=== PATIENT | female | born 1985 | race Caucasian/White ===

== ENCOUNTER 2019-05-26 02:28 | Inpatient (IN) ==
[2019-05-26] MEDS ORDERED: LORazepam 1 MG/2 ML VIAL IV STA (02:33)
[2019-05-26] MEDS ORDERED: SODIUM CHLORIDE 0.9% 1000ML 1,000 ML IV ONE (02:33)
[2019-05-26 02:51] LABS: Basophils # (auto) 0.01 K/uL (0-0.2); Basophils % (auto) 0.1 %; Eosinophils % (auto) 2.9 %; Hematocrit (blood only) 40.3 % (37-47); Hemoglobin 13.9 g/dL (12.0-16.0); Immature Granulocytes # (auto) 0.01 K/uL (0.00-0.02); Immature Granulocytes % (auto) 0.1 %; Lymphocytes # (auto) 1.59 K/uL (1.2-3.4); Lymphocytes % (auto) 22.7 %; Mean Corpuscular Hgb Conc 34.5 g/dL (32-36); Mean Corpuscular Volume 88.4 fL (80-100); Monocytes # (auto) 0.26 K/uL (0.11-0.59); Monocytes % (auto) 3.7 %; Neutrophils # (auto) 4.92 K/uL (1.4-6.5); Neutrophils % (auto) 70.5 %; Platelet Count 193 K/uL (130-400); RDW Coefficient of Variation 12.6 % (11.5-14.5); RDW Standard Deviation 40.1 fL (36.4-46.3); Red Blood Count 4.56 M/uL (4.2-5.4); White Blood Count 6.99 K/uL (4.8-10.8)
[2019-05-26 03:03] LABS: Appearance Urine Clear (Clear); Bacteria Urine Automated Negative (Negative); Bilirubin Urine Negative (Negative); Blood Urine 2+ (Negative); Color Urine Yellow; Glucose Urine UA Negative (Negative); Ketones Urine Trace (Negative); Leukocyte Esterase Urine Negative (Negative); Nitrite Urine Negative (Negative); Protein Urine 1+ (Negative); RBC Urine Automated 0-4 /hpf (0-4); Specific Gravity Urine 1.025 (1.000-1.030); Urobilinogen Urine Negative (Negative)
[2019-05-26 03:20] LABS: Alanine Aminotransferase 25 U/L (12-78); Albumin Level 3.9 gm/dl (3.4-5.0); BUN Creatinine Ratio 14.8 (10-20); Blood Urea Nitrogen 16 mg/dl (7-18); Calcium 8.7 mg/dl (8.5-10.1); Carbon Dioxide 25 mmol/L (21-32); Chloride 105 mmol/L (98-107); Creatinine Clr Calc Pharmacy 74.2 ml/min; Est GFR (African American) 79.7; Est GFR (Non-African American) 68.8; Glucose 120 mg/dl (70-99)
[2019-05-26 03:21] LABS: Amphetamines+Metham, Urine Neg (Neg); Barbiturates, Urine Neg (Neg); Benzodiazepine, Urine Neg (Neg); Cocaine, Urine Neg (Neg); MDMA (Ecstacy), Urine Neg (Neg); Methadone, Urine Neg (Neg); Opiate, Urine Neg (Neg); Phencyclidine, Urine Neg (Neg)
[2019-05-26 03:21] LABS: Alkaline Phosphatase 56 U/L (45-117); Bilirubin,Total 0.3 mg/dl (0.2-1); Total Protein 7.8 gm/dl (6.4-8.2); Troponin I < 0.015 ng/ml (0-0.045)
[2019-05-26 03:38] LABS: Aspartate Aminotransferase 22 U/L (15-37); Magnesium 2.4 mg/dl (1.8-2.4)
[2019-05-26 03:39] LABS: Potassium 3.4 mmol/L (3.5-5.1); Sodium 140 mmol/L (136-145)
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
--- NOTE | 2019-05-26 05:26 | History & Physical Report ---
Date of Service May 26, 2019 Assessment & Plan (1) Seizure disorder: Patient with longstanding history of seizures. She has been on multiple AEDs to include Phenobarbital, Keppra, Trileptal, Dilantin, Lamictal. Right temporal lobectomy in 2000 with posterior revision in 2012. She had a VNS for 6 months in with subsequent removal and replacement. Patient was following with Neurology in [place] but is presenlty living in the [facility] and does not have a Neurologist. She has been trying to decrease her medications, specifically Keppra secondary to depression and mood. Mother denies use of recreational drugs aside from medical marijuana. -Patient given Keppra x 1gm in ER -Continue Vimpat 200mg po BID -Continue Carbamazepine 200mg po BID -Continue Clobazam 20mg po qHS -Neurology consult - appreciate assistance with this case -Case management assistance to establish care with PCP and Neuro - appreciate assistance -Seizure precautions -Will hold of on EEG and additional imaging for now Present on Admission?: Yes (2) Altered mental status: Patient post-ictal. Presently resting comfortably, arousable and following some commands. -As above Present on Admission?: Yes (3) Dehydration: NSS at 125mL/hr with KCL 20mEq Encourage PO intake when mental status improves F/E/N - IVF as above, K repletion as above, check PO4 x 1, NPO for now, advance diet as tolerated as mental status improves Ppx - low risk for DVT, aspiration precautions Code - Full Dispo - admit to PCU History of Present Illness Chief Complaint: seizure Primary Care Provider: NO PCP Jennie Arambula is a 33yo C female with history of seizure disorder/epilepsy since age 9 presenting today after witnessed seizure x 2 at home. History obtained from patient's mother at bedside as patient is post-ictal. She states that this evening she found patient seizing in the living room. She reports tonic-clonic activity, muscle stiffness, head and eyes jerking to one side. States seizure lasted approximately 1 minute. After the seizure patient was walking around the house, not responding and acting confused and became combative. EMS was called - patient had a second seizure and again became combative. Patient was given Ativan 2mg IV and Ketamine 3mg/kg in the field. Mother reports that patient has never had a seizure this severe before. She states that the seizure lasted longer than prior seizures and she was more confused afterwards. Patient was previously living in [place], [place] with her father. She was following with [facility] there (mother is unsure of physician's name). She has since moved in with her mother and has been staying on the couch until she gets an apartment. Her mother states she has had seizures since age 9. She has been on multiple AEDs in the past. She had a vagus nerve stimulator in place which was subsequently removed and placed again. She is presently on Tegretal, Vimpat and Keppra. She has been self-weaning her medications over the past few months. She specifically wishes to discontinue the Keppra as it makes her depressed and angry. Her mother reports she has weaned herself down to 500mg of Keppra daily. ER Course: Keppra x 1gm, Ativan x 1 mg, NSS Allergies Allergy/AdvReac Type Severity Reaction Status Date / Time Aminoglycosides Allergy Mild Unresponsiv Verified 05/26/19 03:31 e aspirin Allergy Mild Unknown Verified 05/26/19 03:31 bacitracin Allergy Mild Unknown Verified 05/26/19 03:31 neomycin Allergy Mild Unknown Verified 05/26/19 03:31 polymyxin B Allergy Mild Unknown Verified 05/26/19 03:31 Home Medications Home Medications Medication Instructions Recorded Confirmed Type carbamazepine 200 mg PO BID 05/26/19 05/26/19 History clobazam [Onfi] 20 mg PO HS 05/26/19 05/26/19 History lacosamide [Vimpat] 200 mg PO BID 05/26/19 05/26/19 History levetiracetam [Keppra] 1,500 mg PO BID 05/26/19 05/26/19 History Past Med/Surg History Medical History Seizure disorder (Chronic) Surgical History Status post VNS (vagus nerve stimulator) placement (Resolved) History of brain surgery Family History Other Hypertension Multiple sclerosis Social History marital status: Single Current Living Situation: Family Feels Safe at Home: Declines to Answer Smoking Status: Current every day smoker Hx Alcohol Use: No Hx Substance Use: Yes substance use type: marijuana caffeine: Yes Review of Systems Review of Systems: Unobtainable due to reduced consciousness mother reports patient complains of headache, tinnitus, low back pain Physical Exam Physical Exam: General: patient somnolent, arousable, follows commands, does not provide verbal response, non-toxic in appearance Skin: warm, dry, intact, no rashes or lesions, multiple tattoos HEENT: NC/AT, cranial deformity right temporal lobe, PERRL, anicteric sclera, conjunctiva without injection, external ear normal to inspection and nontender, nares patent, dry mucus membranes, dentition intact, no oropharyngeal lesions, neck supple, trachea midline, no LAD, no thyromegaly, no JVD Heart: +S1/S2, regular, no m/r/g Lungs: equal air entry bilaterally, no rales/rhonchi/wheezes Abd: +BS, soft, NT/ND, no masses/organomegaly/ascites Ext: warm, 2+ pulses in UE/LE bilaterally, no clubbing/cyanosis or edema Neuro: nonfocal, patient moving all extremities on command with equal strength Results & Data Vital Signs (Past 12 Hours) Vital Signs Temp Pulse Pulse Resp BP BP Pulse Ox 05/26/19 04:26 97 H 22 107/72 96 05/26/19 03:31 90 16 129/86 97 05/26/19 02:34 36.8 C 107 H 16 150/101 H 96 Laboratory Results Lab Results 05/26/19 05/26/19 05/26/19 Range/Units 02:41 02:41 02:49 WBC 6.99 (4.8-10.8) K/uL RBC 4.56 (4.2-5.4) M/uL Hgb 13.9 (12.0-16.0) g/dL Hct 40.3 (37-47) % MCV 88.4 (80-100) fL MCH 30.5 (25-34) pg MCHC 34.5 (32-36) g/dL RDW Std Deviation 40.1 (36.4-46.3) fL RDW Coeff of Justin 12.6 (11.5-14.5) % Plt Count 193 (130-400) K/uL MPV 10.0 (7.4-10.4) fL Immature Gran % (Auto) 0.1 % Neut % (Auto) 70.5 % Lymph % (Auto) 22.7 % [place] % (Auto) 3.7 % Eos % (Auto) 2.9 % Baso % (Auto) 0.1 % Immature Gran # (Auto) 0.01 (0.00-0.02) K/uL Neut # (Auto) 4.92 (1.4-6.5) K/uL Lymph # (Auto) 1.59 (1.2-3.4) K/uL [place] # (Auto) 0.26 (0.11-0.59) K/uL Eos # (Auto) 0.20 (0-0.5) K/uL Baso # (Auto) 0.01 (0-0.2) K/uL Sodium 140 (136-145) mmol/L Potassium 3.4 L (3.5-5.1) mmol/L Chloride 105 (98-107) mmol/L Carbon Dioxide 25 (21-32) mmol/L Anion Gap 10.0 (3-11) BUN 16 (7-18) mg/dl Creatinine 1.05 (0.6-1.2) mg/dl Est Cr Clr Drug Dosing 74.2 ml/min Est GFR ( Amer) 79.7 Est GFR (Non-Af Amer) 68.8 BUN/Creatinine Ratio 14.8 (10-20) Glucose 120 H (70-99) mg/dl Calcium 8.7 (8.5-10.1) mg/dl Magnesium 2.4 (1.8-2.4) mg/dl Total Bilirubin 0.3 (0.2-1) mg/dl Direct Bilirubin (0-0.2) mg/dl AST 22 (15-37) U/L ALT 25 (12-78) U/L Alkaline Phosphatase 56 (45-117) U/L Troponin I < 0.015 (0-0.045) ng/ml Total Protein 7.8 (6.4-8.2) gm/dl Albumin 3.9 (3.4-5.0) gm/dl TSH 2.440 (0.300-4.500) uIu/ml Specimen Hemolysis Urine Color Urine Appearance (Clear) Urine pH (4.5-7.5) Ur Specific [place] (1.000-1.030) Urine Protein (Negative) Urine Glucose (UA) (Negative) Urine Ketones (Negative) Urine Blood (Negative) Urine Nitrite (Negative) Urine Bilirubin (Negative) Urine Urobilinogen (Negative) Ur Leukocyte Esterase (Negative) Urine WBC (Auto) (0-5) /hpf Urine RBC (Auto) (0-4) /hpf U Hyaline Cast (Auto) (0-5) /lpf U Epithel Cells (Auto) (0-5) /lpf Urine Bacteria (Auto) (Negative) Urine Opiates Screen Neg (Neg) Ur Methadone, Qual Neg (Neg) Urine Barbiturates Neg (Neg) Ur Phencyclidine (PCP) Neg (Neg) U Amphetamin/Meth Scrn Neg (Neg) MDMA (Ecstasy) Screen Neg (Neg) U Benzodiazepines Scrn Neg (Neg) Ur Cocaine Metabolite Neg (Neg) U Marijuana (THC) Screen Pos H (Neg) Ethyl Alcohol mg/dL (0-3) mg/dl 05/26/19 05/26/19 Range/Units 02:49 03:15 WBC (4.8-10.8) K/uL RBC (4.2-5.4) M/uL Hgb (12.0-16.0) g/dL Hct (37-47) % MCV (80-100) fL MCH (25-34) pg MCHC (32-36) g/dL RDW Std Deviation (36.4-46.3) fL RDW Coeff of Justin (11.5-14.5) % Plt Count (130-400) K/uL MPV (7.4-10.4) fL Immature Gran % (Auto) % Neut % (Auto) % Lymph % (Auto) % [place] % (Auto) % Eos % (Auto) % Baso % (Auto) % Immature Gran # (Auto) (0.00-0.02) K/uL Neut # (Auto) (1.4-6.5) K/uL Lymph # (Auto) (1.2-3.4) K/uL [place] # (Auto) (0.11-0.59) K/uL Eos # (Auto) (0-0.5) K/uL Baso # (Auto) (0-0.2) K/uL Sodium (136-145) mmol/L Potassium (3.5-5.1) mmol/L Chloride (98-107) mmol/L Carbon Dioxide (21-32) mmol/L Anion Gap (3-11) BUN (7-18) mg/dl Creatinine (0.6-1.2) mg/dl Est Cr Clr Drug Dosing ml/min Est GFR ( Amer) Est GFR (Non-Af Amer) BUN/Creatinine Ratio (10-20) Glucose (70-99) mg/dl Calcium (8.5-10.1) mg/dl Magnesium (1.8-2.4) mg/dl Total Bilirubin (0.2-1) mg/dl Direct Bilirubin (0-0.2) mg/dl AST (15-37) U/L ALT (12-78) U/L Alkaline Phosphatase (45-117) U/L Troponin I (0-0.045) ng/ml Total Protein (6.4-8.2) gm/dl Albumin (3.4-5.0) gm/dl TSH (0.300-4.500) uIu/ml Specimen Hemolysis Urine Color Yellow Urine Appearance Clear (Clear) Urine pH 5.0 (4.5-7.5) Ur Specific [place] 1.025 (1.000-1.030) Urine Protein 1+ H (Negative) Urine Glucose (UA) Negative (Negative) Urine Ketones Trace H (Negative) Urine Blood 2+ H (Negative) Urine Nitrite Negative (Negative) Urine Bilirubin Negative (Negative) Urine Urobilinogen Negative (Negative) Ur Leukocyte Esterase Negative (Negative) Urine WBC (Auto) 1-5 (0-5) /hpf Urine RBC (Auto) 0-4 (0-4) /hpf U Hyaline Cast (Auto) 1-5 (0-5) /lpf U Epithel Cells (Auto) 10-20 H (0-5) /lpf Urine Bacteria (Auto) Negative (Negative) Urine Opiates Screen (Neg) Ur Methadone, Qual (Neg) Urine Barbiturates (Neg) Ur Phencyclidine (PCP) (Neg) U Amphetamin/Meth Scrn (Neg) MDMA (Ecstasy) Screen (Neg) U Benzodiazepines Scrn (Neg) Ur Cocaine Metabolite (Neg) U Marijuana (THC) Screen (Neg) Ethyl Alcohol mg/dL < 3.0 (0-3) mg/dl Diagnostic Findings CT HEAD - per STAT-rad, post-right sided craniotomy and there is resection cavity at right temporal lobe, similar to prior. No acute intracranial hemorrhage or significant interval change CXR - Vagus nerve stimulator, no acute pulmonary process Code Status & VTE Plan Code Status FULL VTE Prophylaxis Plan VTE Prophylaxis will be ordered: No Reason for no VTE drug order: Treatment not indicated Reason for no VTE mechanical prophylaxis: Treatment not indicated PG Care Time/CCT Total # of Minutes Spent Total Time Spent with Patient: Total time spent is greater than 50% in coordination of care (as documented) at patient's floor/unit and/or counseling patient: (1) Altered mental status Altered mental status type: unspecified Qualified Code(s): R41.82 - Altered mental status, unspecified
[2019-05-26] MEDS ORDERED: ACETAMINOPHEN 325 MG TAB PO PRN (05:46)
[2019-05-26] MEDS ORDERED: LORazepam 1 MG/2 ML VIAL IV PRN (05:46)
[2019-05-26] MEDS: NSS + 20MEQ KCL 20 MEQ/1,000 ML BAG IV SCH ×3 (06:04→23:17)
--- NOTE | 2019-05-26 06:30 | XRay Report ---
XR chest 1V portable CLINICAL HISTORY: Acute change in mental status. Seizure. COMPARISON STUDY: 09/29/2014 FINDINGS: The cardiac and mediastinal contours are normal. There is no evidence of focal pulmonary co nsolidation. There is no evidence of failure. No pleural effusions are visualized.[A stimulator devic e projects over the left upper lateral chest wall with electrode extending cephalad into the neck. IMPRESSION: No active disease in the chest. Electronically signed by: Dewey Key M.D. 05/26/2019 6:29 AM
[2019-05-26 06:36] LABS: Pregnancy Test, Urine Negative (Negative)
--- NOTE | 2019-05-26 06:38 | CT Scan Report ---
CT head/brain wo con CLINICAL HISTORY: 33 years-old Female with Seizure. Acute seizure like activity TECHNIQUE: Multiple axial CT images of the head were obtained without contrast. A dose lowering tech nique was utilized adhering to the principles of ALARA. CT DOSE: 614.27 mGy.cm COMPARISON: Head CT 09/29/2014. FINDINGS: No acute intracranial hemorrhage, midline shift, intracranial mass, hydrocephalus, territorial ischem ia or abnormal extra-axial collection. Postoperative changes from prior right-sided craniotomy with e ncephalomalacia/resection cavity about the right temporal lobe. The calvarium is intact. Trace left mastoid effusion. Right mastoid air cells and paranasal sinuses are generally clear. Soft tissues and orbits are unremarkable. IMPRESSION: Chronic findings as above without acute intracranial abnormality. The above report was generated using voice recognition software. It may contain grammatical, syntax o r spelling errors. Electronically signed by: Fitz Vasquez M.D. 05/26/2019 6:36 AM
[2019-05-26] MEDS: LACOSAMIDE 50 MG TABLET PO SCH ×2 (07:20→21:29)
[2019-05-26] MEDS: CARBAMAZEPINE 200 MG TABCR PO SCH ×2 (07:21→21:29)
--- NOTE | 2019-05-26 10:05 | Neurology Consultation ---
Date of Consultation May 26, 2019 Assessment & Plan (1) Status epilepticus: Patient has a history of epilepsy since age 9 with a right temporal lobectomy age 16 (with revision in 2012). She has been refractory to multiple anticonvulsants over time. She has a vagal nerve stimulator implanted. She continues to have seizures. The patient was tapering levetiracetam over the last 2 months and she had 2 severe breakthrough seizures earlier this morning. She had significant generalized tonic-clonic activity with severe postictal state and combative agitation. Currently she is doing well neurologically with some sedation/sleepiness from medications given to her earlier today, but she has no focal neurologic findings, meningeal signs, or encephalopathy. Medications currently should be Vimpat 200 mg twice a day, carbamazepine 200 mg twice daily, clobazam 20 mg at bedtime, and Keppra 1500 mg twice daily (although she cannot tolerate that peak of the dose). She is also on medical marijuana. (2) Chronic headaches: Patient has had intermittent headaches of mixed features since her temporal lobectomy in 2000. These are only occurring about once or twice a week and are triggered by stress. (3) Depression with anxiety: Patient has significant depression and other mood issues. 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 She is currently not on any medication for mood. I am concerned however in that any antidepressant could lower her seizure threshold and make it easier for her to have seizures. Recommendations: 1. MRI of the brain with without contrast to evaluate her right temporal lobe. 2. I see no need for an EEG at this time. 3. Continue Vimpat 200 mg twice daily. 4. Check a carbamazepine level and continue at 200 mg twice daily for now. 5. Continue clobazam 20 mg at bedtime. 6. Continue levetiracetam at 1000 mg twice daily for now. I would strongly consider tapering this off as an outpatient because she is having cognitive/irritable/mood side effects because of this medication. It is not a very strong anticonvulsant anyway. 7. I would be happy to see her as an outpatient. I have discussed possibilities with her and her mother, who was at bedside, and would strongly consider initiating Lamictal per protocol and titrate up to a solid dose. Lamictal is an excellent medication to stop complex partial seizures and also is a mood stabilizer as well as a headache preventer. He does not have cognitive side effects or GI side effects. If she goes on Lamictal and does well and we can get her off levetiracetam (and she continues to do well), I may consider tapering off carbamazepine as well (Lamictal and carbamazepine have similar mechanisms of action). An alternative might be to initiate Briviact (which is a newer version of Keppra) and discontinue Keppra. 8. Increase activity as able. 9. Unfortunately, however, I will not be able to care for her vagal nerve stimulator (I do not do that)- she would have to find someone to monitor that (possibly Radha).. Overall, I spent a total of 120 minutes with this case including review of records, direct evaluation the patient at bedside, discussion of the case with the patient at bedside and her mother who was at bedside, as well as Dr. Sami tillman including differential diagnosis and treatment options. History of Present Illness Reason for Consultation: 33 year old, who I was asked to see at the request of Dr. Jimenez, for neurologic consultation regarding seizures. Requesting Physician: Dr. Jimenez Attending Physician: Kevin Gallardo History of Present Illness Patient had a seizure as an infant. She was put on phenobarbital for appro ximately 2 years and this was discontinued. She did well until approximately age 9 she started having complex partial seizures. She was tried on a variety anticonvulsant medications including phenytoin. She was determined through EEG monitoring and testing that she was having focal onset right temporal lobe seizures refractory to medication. At age 16 she underwent a right temporal lobectomy by Dr. Howell at [facility] in 2000. She apparently went about 2 years seizure-free, but was weaning off anticonvulsants over this timeframe. She then had an incident where a window hit the back of her head approximately 2 years after the surgery and has seizures since. Patient had a vagal nerve stimulator implanted in 2002 (other records claim it was 2007) and this remained till 2010 when it was removed because of throat discomfort. In September of 2013 she underwent a revision of her right temporal lobe surgery removing some more area. She continued to have seizures In 2010 she had neuropsychological testing at [facility]. 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 Patient saw Dr. Holland in August of 2015. According to Dr. Holland's notes she was having regular seizures. She had tried and failed Zonegran (side effects) phenytoin, Lamictal (but were not certain why she stop this), oxcarbazepine (not certain why this was stopped), and Depakote (Because of hirsutism, weight gain, and tremor) Clonazepam was avoided because of her history of substance abuse. Dr. Holland tried gabapentin but this had been stopped. Apparently the patient tried topiramate in the past but stopped that as well. She moved down to [place] so did not see Dr. Holland again. She has been followed by Dr. Mays, a neurologist in [facility] over the last several years. Vagal nerve stimulator was reimplanted in 2006. He monitors her VNS and prescribes all anticonvulsant medication. Onfi has been a new medication. Patient has had headaches for many years, all since her temporal lobe surgery. They currently occur once or twice a week and are triggered by stress. They typically are sharp throbbing bitemporal pain with photophobia. Patient has a history of depression and was on paroxetine this was discontinued as her prescription ran out. She is uncertain if the paroxetine really helped her mood or not. Since February of this year, she has had increased stress from life. She has moved up to the [place] area. She is tapering levetiracetam because of irritability and other side effects. It is uncertain whether she is tapering carbamazepine but she told me that she is on her regular dose. She has not changed Vimpat or clobazam. She was down to 500 mg twice daily of levetiracetam from a usual dose of 1500 mg twice daily. She has been using medical marijuana recently daily. She also has regular marijuana up to 3 times a week. The patient was found in the living room by her mother at approximately 2 o'clock in the morning today. She was not responding well and then had a violent tonic-clonic seizure involving all 4 limbs lasting approximately a minute. She was postictal E confused and combative. The mother did give her 0.5 mg of Ativan orally. EMS was called and she had a 2nd seizure with significant combativeness post ictally. She fought with the police and needed to be handcuffed. She was given 2 mg of Ativan at 3 mg of ketamine before arriving to the emergency room. On May 26 at 0241 temperature was 36.8, pulse 107, respiratory rate 16, blood pressure 150/101, and O2 saturation 96%. She was described in a dissociative state and others described her as somnolent with decreased speech and no focal findings on exam. CBC and Chem profile were unremarkable. TSH was 2.44. Urinalysis was unremarkable. Drug screen was negative except for positive marijuana. She was given 1 g of Keppra in the emergency room. CT scan of the head was unremarkable. Chest x-ray was unremarkable. This morning, the patient is tired and is a bit of a bifrontal headache but is thinking better and has no blurry vision, double vision, weakness or numbness of the limbs, or significant confusion. She is very bruised from her battles with EMS and police last night. Allergies Allergy/AdvReac Type Severity Reaction Status Date / Time Aminoglycosides Allergy Mild Unresponsiv Verified 05/26/19 03:31 e aspirin Allergy Mild Unknown Verified 05/26/19 03:31 bacitracin Allergy Mild Unknown Verified 05/26/19 03:31 neomycin Allergy Mild Unknown Verified 05/26/19 03:31 polymyxin B Allergy Mild Unknown Verified 05/26/19 03:31 Home Medications Home Medications Medication Instructions Recorded Confirmed Type carbamazepine 200 mg PO BID 05/26/19 05/26/19 History clobazam [Onfi] 20 mg PO HS 05/26/19 05/26/19 History lacosamide [Vimpat] 200 mg PO BID 05/26/19 05/26/19 History levetiracetam [Keppra] 1,500 mg PO BID 05/26/19 05/26/19 History Patient History Medical History Seizure disorder (Chronic) Surgical History Status post VNS (vagus nerve stimulator) placement (Resolved) History of brain surgery Family History Mother Multiple sclerosis Father Hypertension Heart disease Social History Preferred Language: Maltese Communication Ability: Effective Beliefs That Will Affect Care: None marital status: Single Current Living Situation: Family current occupational status: disabled current occupation: Has worked part-time in the past but not since 2016 other: Currently on social security disability Feels Safe at Home: Yes Smoking Status: Current every day smoker Tobacco Type: cigarettes packs per day: 1 Second Hand Exposure: No Hx Substance Use: Yes substance use type: marijuana caffeine: Yes Review of Systems Constitutional: + weakness; no fever and no fatigue Eyes: no diplopia, no eye pain and no worsening vision Ear, Nose, Mouth, Throat: no ear pain, no tinnitus, no hearing loss and no dysphagia Respiratory: no cough and no dyspnea Cardiovascular: no chest pain, no dyspnea and no palpitations Gastrointestinal: no abdominal pain, no nausea and no vomiting Genitourinary: no dysuria, no urinary frequency and no urinary incontinence Musculoskeletal: no back pain, no neck pain, no radicular pain, no myalgia, no muscle weakness and no muscle atrophy Integumentary: no rash and no lesions Neurologic: no gait abnormality, no falls, no localized weakness, no generalized weakness, no tingling, no numbness, no tremor(s), no abnormal movements, no dizziness, no headache(s), no abnormal speech, no behavioral changes, no confusion and no memory loss Psychiatric: + depression; no abnormal sleep pattern, no anxiety, no difficulty concentrating, no confusion and no hallucinations Endocrine: no fatigue and no flushing Hematologic / Lymphatic: no easy bleeding and no easy bruising Allergy / Immunological: no urticaria Physical Exam Physical Exam: The patient is right-handed. The patient is awake, alert, and attentive, although sleepy. Speech is normal without any aphasia or dysarthria. Mentation and thought processes are intact, with full orientation and normal fund of knowledge. Attention and concentration are normal. Mood and affect are normal and appropriate. General appearance and grooming are normal. Short and long-term memory are intact. The discs are sharp with positive venous pulsations bilaterally. There are no exudates, hemorrhages, or blood vessel changes seen. Pupils are 4 mm bilaterally and reactive to light. Extraocular eye muscles are intact without nystagmus. Visual acuity and visual jay seem normal grossly to confrontation. There are no deficits to sensation in the face in all 3 distributions of the fifth cranial nerve bilaterally. Corneal reflexes are positive bilaterally. Facial strength and symmetry was normal bilaterally. Hearing seems intact grossly to voice and finger rub bilaterally. Palate moves well without asymmetry. There is normal sternocleidomastoid and trapezius (shoulder shrug) strength bilaterally. Tongue is midline with good strength bilaterally. Neck has a full range of motion without discomfort. There are no cervical bruits bilaterally. There are no cranial or ocular bruits. Heart is without murmur. There is a regular rhythm and rate. Cervical, thoracic, and lumbar spine are nontender to palpation. Gait was not tested. Stance in bed is reasonable. With outstretched arms there is no drift. There are no resting, postural, or action tremors. There is no ataxia with finger to nose testing. There is good facility in the hands. No other abnormal involuntary movements are noted. 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 Motor strength is 5/5 diffusely in the legs bilaterally including hip flexors, quadriceps, hamstrings, gastrocnemius, tibialis anterior, tibialis posterior, and Peroneii muscles bilaterally. Toe extensors are normal and there is good bulk in the extensor digitorum brevis muscles bilaterally. The limbs have good tone without rigidity or spasticity. There is no atrophy noted in the muscles. Muscle bulk is normal, there is no tenderness to palpation, no myotonia to percussion, and no fasciculations seen. Sensory examination is intact to touch and pin throughout all 4 limbs diffusely. Reflexes are 2/4 in the biceps, triceps, brachioradialis, quadriceps, and Achilles tendons bilaterally. Toes are downgoing with plantar stimulation bilaterally. Peripheral pulses are present and of normal quality distally in all 4 limbs. There is no peripheral edema noted in the limbs. Results & Data Vital Signs (Past 12 Hours) Vital Signs Temp Pulse Pulse Resp BP BP Pulse Ox 05/26/19 07:54 91 H 05/26/19 07:48 05/26/19 07:25 36.8 C 93 H 18 114/76 97 05/26/19 05:46 36.7 C 93 H 16 122/74 97 05/26/19 05:20 95 H 20 108/67 95 05/26/19 04:26 97 H 22 107/72 96 05/26/19 03:31 90 16 129/86 97 05/26/19 02:34 36.8 C 107 H 16 150/101 H 96 Pulse Ox 05/26/19 07:54 05/26/19 07:48 97 05/26/19 07:25 05/26/19 05:46 05/26/19 05:20 05/26/19 04:26 05/26/19 03:31 05/26/19 02:34
[2019-05-26] MEDS: ONFI~ORDER AWAITING ACTION SCH ×3 (12:04→23:17)
[2019-05-27] MEDS: ONFI~ORDER AWAITING ACTION SCH (09:19)
[2019-05-27] MEDS: LACOSAMIDE 50 MG TABLET PO SCH (09:20)
[2019-05-27] MEDS: CARBAMAZEPINE 200 MG TABCR PO SCH (09:20)
[2019-05-27] MEDS: NSS + 20MEQ KCL 20 MEQ/1,000 ML BAG IV SCH (09:22)
[2019-05-27 11:37] VITALS: BP 158/77; PULSE 72; TEMP 99.1; O2SAT 99
[2019-05-27] MEDS ORDERED: CLOBAZAM PO PRN (11:51)
[2019-05-27] MEDS ORDERED: CLOBAZAM 10 MG PO SCH (21:00)
--- NOTE | 2019-06-03 23:41 | Discharge Summary ---
Date of Service May 27, 2019 Admission HPI Per Admitting Provider Jennie Arambula is a 33yo C female with history of seizure disorder/epilepsy since age 9 presenting today after witnessed seizure x 2 at home. History obtained from patient's mother at bedside as patient is post-ictal. She states that this evening she found patient seizing in the living room. She reports tonic-clonic activity, muscle stiffness, head and eyes jerking to one side. States seizure lasted approximately 1 minute. After the seizure patient was walking around the house, not responding and acting confused and became combative. EMS was called - patient had a second seizure and again became combative. Patient was given Ativan 2mg IV and Ketamine 3mg/kg in the field. Mother reports that patient has never had a seizure this severe before. She states that the seizure lasted longer than prior seizures and she was more confused afterwards. Patient was previously living in [place], [place] with her father. She was following with Neurolgoy there (mother is unsure of physician's name). She has since moved in with her mother and has been staying on the couch until she gets an apartment. Her mother states she has had seizures since age 9. She has been on multiple AEDs in the past. She had a vagus nerve stimulator in place which was subsequently removed and placed again. She is presently on Tegretal, Vimpat and Keppra. She has been self-weaning her medications over the past few months. She specifically wishes to discontinue the Keppra as it makes her depressed and angry. Her mother reports she has weaned herself down to 500mg of Keppra daily. ER Course: Keppra x 1gm, Ativan x 1 mg, NSS Principal Diagnosis Seizures Discharge Exam General: Awake, alert, follows commands, non-toxic in appearance Skin: warm, dry, intact, no rashes or lesions, multiple tattoos HEENT: NC/AT, cranial deformity right temporal lobe, PERRL, anicteric sclera, conjunctiva without injection, external ear normal to inspection trachea midline, no LAD, no thyromegaly, no JVD Heart: +S1/S2, regular, no m/r/g Lungs: equal air entry bilaterally, no rales/rhonchi/wheezes Abd: +BS, soft, NT/ND, no masses/organomegaly/ascites Ext: warm, 2+ pulses in UE/LE bilaterally, no clubbing/cyanosis or edema Neuro: nonfocal, patient moving all extremities on command with equal strength Discharge Data Allergies Allergy/AdvReac Type Severity Reaction Status Date / Time Aminoglycosides Allergy Mild Unresponsiv Verified 06/01/19 09:50 e aspirin Allergy Mild Unknown Verified 06/01/19 09:50 bacitracin Allergy Mild Unknown Verified 06/01/19 09:50 neomycin Allergy Mild Unknown Verified 06/01/19 09:50 polymyxin B Allergy Mild Unknown Verified 06/01/19 09:50 Consultations 05/26/19 04:18 ED Decision to Admit Stat 05/26/19 05:46 Consult Case Management - Discharge Planning Routine Consult Neurology Routine Ordered Studies 05/26/19 02:33 CT head/brain wo con Urgent Hospital Course (1) Seizure disorder: Patient with longstanding history of seizures. She has been on multiple AEDs to include Phenobarbital, Keppra, Trileptal, Dilantin, Lamictal. Right temporal lobectomy in 2000 with posterior revision in 2012. She had a VNS for 6 months in with subsequent removal and replacement. Patient was following with Neurology in [place] but is presenlty living in the [facility] and does not have a Neurologist. She has been trying to decrease her medications, specifically Keppra secondary to depression and mood. Mother denies use of recreational drugs aside from medical marijuana. On admision: -Patient given Keppra x 1gm in ER -Continue Vimpat 200mg po BID -Continue Carbamazepine 200mg po BID -Continue Clobazam 20mg po qHS -Neurology consult - appreciate assistance with this case -Case management assistance to establish care with PCP and Neuro - appreciate assistance -Seizure precautions -Will hold of on EEG and additional imaging for now On day of discharge Neuro recommended the following: MRI of the brain with without contrast to evaluate her right temporal lobe. 2. I see no need for an EEG at this time. 3. Continue Vimpat 200 mg twice daily. 4. Check a carbamazepine level and continue at 200 mg twice daily for now. 5. Continue clobazam 20 mg at bedtime. 6. Continue levetiracetam at 1000 mg twice daily for now. I would strongly consider tapering this off as an outpatient because she is having cognitive/irritable/mood side effects because of this medication. It is not a very strong anticonvulsant anyway. 7. I would be happy to see her as an outpatient. I have discussed possibilities with her and her mother, who was at bedside, and would strongly consider initiating Lamictal per protocol and titrate up to a solid dose. Lamictal is an excellent medication to stop complex partial seizures and also is a mood stabilizer as well as a headache preventer. He does not have cognitive side effects or GI side effects. If she goes on Lamictal and does well and we can get her off levetiracetam (and she continues to do well), I may consider tapering off carbamazepine as well (Lamictal and carbamazepine have similar mechanisms of action). An alternative might be to initiate Briviact (which is a newer version of Keppra) and discontinue Keppra. 8. Increase activity as able. 9. Unfortunately, however, I will not be able to care for her vagal nerve stimulator (I do not do that)- she would have to find someone to monitor that (possibly Radha). On discharge: Added lamictal.And decreased keppra to 1000mg Also increased carbamazepine to 300 as level was low. (2) Altered mental status: Patient post-ictal on admission. This has resolved. Presently resting comfortably, arousable and following some commands. -As above (3) Dehydration: Resolved with iVF. Total Time Total Time Spent Total Time Spent (In Minutes): 31 Total Time Includes: Examination of the Patient, Discharge Planning, Medication Reconciliation and Communication With Other Providers Discharge Plan Discharge Items Patient Disposition: Home - Self-Care Reason For Visit: SEIZURE Discharge Diagnosis: seizure Discharge Goals: Decrease discomfort and Diagnostic testing Activity: Resume your previous activity Non-emergency contact: Primary Care Provider Call non-emergency contact if: you have any medication questions Follow-up/Referrals: Mariluz Kirby CRNP, MS, TOOLS DEVELOPER-C [Family Provider] - 06/01/19 9:30 am (Please, follow up with Mariluz RAPP on SaturdayJune 01 at 10:00 am (arrive 9:30). *She will be your new primary care provider. The office is located in [address] of [facility]. This is the big building next to this [facility]. If you need to change or cancel this appointment, call the office at [phone].) Zahraa Hazel PA-C [Physician Pants Closer] - 08/04/19 12:30 pm (Please, follow up at [facility] Neurology Office with Zahraa Hazel PA-C on August 04 at 1:00 am (arrive 12:30 pm). *The office is located at [address] [place] [address] in [place]. If you need to change this appointment, call the office at [phone]. THEY ARE GOING TO ADD YOU TO THE WAIT LIST AND SOMEONE WILL CALL YOU, IF AN EARLIER APPOINTMENT BECOMES AVAILABLE) Diet: Regular Addtl Provider Instructions: Will recommend to followup with Neurology as an outpatient in July. Will have you followup with PCP in 1 week Recommend checking carbamazepine level in 1 week. Prescriptions: New carbamazepine 100 mg capsule, ER multiphase 12 hr 100 mg PO BID Qty: 60 RF: 0 lamotrigine [Lamictal XR] 50 mg tablet extended release 24hr 50 mg PO DAILY Qty: 60 RF: 0 levetiracetam [Keppra] 1,000 mg tablet 1,000 mg PO BID Qty: 60 RF: 0 Continued carbamazepine 200 mg Tablet Extended Release 12 Hr 200 mg PO BID RF: 0 Vimpat 200 mg Tablet 200 mg PO BID RF: 0 clobazam [Onfi] 10 mg Tablet 20 mg PO HS RF: 0 Discontinued paroxetine HCl 10 mg tablet PO .TAKE 1 TABLET DAILY. RF: 0 levetiracetam [Keppra] 500 mg Tablet 1,500 mg PO BID RF: 0 No Action nicotine 14 mg/24 hr patch 24 hour TD .APPLY 1 PATCH DAILY RF: 0 lorazepam 0.5 mg tablet 0.5 mg PO Q8H PRNQty: 8 RF: 0 paroxetine HCl [Paxil] 10 mg tablet 10 mg PO DAILY Qty: 90 RF: 3 paroxetine HCl [Paxil] 40 mg tablet 40 mg PO DAILY Qty: 30 RF: 2 prochlorperazine maleate 10 mg tablet 10 mg PO .TAKE 1 TABLET EVERY Qty: 30 RF: 0 Stand-Alone Forms: [facility] Discharge Orders: Discharge Order (Routine); Ordered 05/27/19 Ordered By: Kevin Gallardo Admission Data Admit Date/Time: 05/26/19 04:59 Attending Provider: Kevin Gallardo Admit Provider: Kimberly Jimenez Primary Care Provider: PCP,NO Other Providers: Tristian Baird III Service: Telemetry Other Interventions: Discharge Summary Assessment (RN) Last Done: 05/27/19 14:09 DC Date/Time DO NOT enter until pt leaves facility: 05/27/19 14:26
== END 2019-05-27 14:26 | disposition home or self-care (01) | DRG 101 ==
LOC: ED 02:28 → SUATTDRO 04:59 → 2S 04:59
DX: Z98.890 Other specified postprocedural states; Z88.1 Allergy status to other antibiotic agents; Z79.899 Other long term (current) drug therapy; R41.82 Altered mental status, unspecified; E86.0 Dehydration; Z88.8 Allergy status to other drugs, medicaments and biological substances; F17.210 Nicotine dependence, cigarettes, uncomplicated; Z88.6 Allergy status to analgesic agent; Z96.89 Presence of other specified functional implants; G40.901 Epilepsy, unspecified, not intractable, with status epilepticus; F41.8 Other specified anxiety disorders; R51 Headache